=== PATIENT | female | born 1995 | race Caucasian/White ===

== ENCOUNTER 2021-06-19 21:40 | Emergency (ER) | payer BC, OTHER ==
[2021-06-20 00:12] LABS: HEMOGLOBIN 13.2 gm/dl (12.3-15.3); RED BLOOD COUNT 4.76 M/UL (4.00-5.10); WHITE BLOOD COUNT 9.7 K/UL (4.5-11.0)
[2021-06-20 00:34] LABS: BUN/CREATININE RATIO 20 (0-10)
[2021-06-20] MEDS ORDERED: PROTONIX 40 MG40 M1 PO (01:15)
[2021-06-20] MEDS ORDERED: ONDANSETRON ODT4 MG SL (01:15)
== END 2021-06-20 01:22 | disposition home or self-care (01) ==
LOC: ER1 21:40
PROVIDERS: Physician Assistant Medical
DX: R10.13 Epigastric pain (principal); R10.30 Lower abdominal pain, unspecified; Z91.041 Radiographic dye allergy status; Z90.49 Acquired absence of other specified parts of digestive tract
CPT/HCPCS: 80053; 81001; 83690; 84703; 85025; 99284

== ENCOUNTER → 2022-01-08 | Outpatient (CLI) | payer OTHER ==
[~2022-01-08] MED LIST: ONDANSETRON ODT4 MG SL; PROTONIX 40 MG40 M1 PO
== END ==
LOC: KOH-I 16:12
DX: M54.41 Lumbago with sciatica, right side (principal); M47.816 Spondylosis without myelopathy or radiculopathy, lumbar region
CPT/HCPCS: 72100

== ENCOUNTER 2022-02-07 17:36 | Emergency (ER) | payer OTHER ==
[2022-02-07 19:02] LABS: HEMOGLOBIN 13.1 gm/dl (12.3-15.3); RED BLOOD COUNT 4.9 M/UL (4.00-5.10); WHITE BLOOD COUNT 10.3 K/UL (4.5-11.0)
[2022-02-07 19:22] LABS: BUN/CREATININE RATIO 19 (0-10)
== END 2022-02-07 23:12 | disposition home or self-care (01) ==
LOC: ER1 17:36
PROVIDERS: Physician Assistant
DX: F41.0 Panic disorder [episodic paroxysmal anxiety] (principal); F41.9 Anxiety disorder, unspecified; Z90.49 Acquired absence of other specified parts of digestive tract; Z20.822 Contact with and (suspected) exposure to COVID-19
CPT/HCPCS: 0240U; 71045; 80053; 81001; 82550; 82553; 84484; 84703; 85025; 85379; 93005; 99284